=== PATIENT | female | born 1980 | race Caucasian/White ===

== ENCOUNTER 2016-11-01 01:11 | Inpatient (IN) | payer OTHER ==
[~2016-11-01] VITALS: Ht 162.6 cm; Wt 78.4 kg
[2016-11-01] VITALS (26 sets, daily range): BP systolic 95–162; BP diastolic 56–106
[~2016-11-01 01:11] MED LIST: BACTRIM,SEPT1 TABLET PO; CLEOCIN150 MG PO; CLINDAMYCIN HC300 MG PO; INDERAL10 MG PO; MOBIC7.5 MG PO; NORCO 5/3251 TABLET PO; PRENATAL TABLE1 EAC3 PO; ROBAXIN500 MG PO; ULTRAM50 MG PO; XANAX0.25 MG PO; ZOLOFT100 MG PO
[2016-11-01] MEDS ORDERED: METHADONE 22 MG/1 ML PO (01:51)
[2016-11-01] MEDS ORDERED: ZANTAC150 MG PO (01:52)
[2016-11-01] MEDS ORDERED: TYLENOL REGULA325 MG PO (01:53)
[2016-11-01 03:13] LABS: EOSINOPHIL COUNT 0.1 K/uL (0-0.3); HEMATOCRIT 29.8 % (36.0-46.0); IMMATURE GRANULOCYTE (%) 0.5 % (0.0-0.7); IMMATURE GRANULOCYTE COUNT 0.1 K/uL; INSTRUMENT ABS NEUTROPHIL CT 9.3 K/uL; LYMPHOCYTE COUNT 2.3 K/uL (1.0-2.8); MCH 27.2 PG (29.0-34.0); MCHC 32.6 G/DL (30.0-36.0); MCV 83.5 FL (83-99); MEAN PLAT.VOLUME 11.3 uM^3 (9.5-12.4); MONOCYTE (%) 4.1 % (3-12); MONOCYTE COUNT 0.5 K/uL (0-0.8); NEUTROPHIL (%) 75.3 % (45-76); NEUTROPHIL COUNT 9.3 K/uL (1.8-6.4); PLATELET COUNT 236 K/uL (156-360); RBC DIS.WIDTH-CV 13.1 % (11.8-14.6); RBC DIS.WIDTH-SD 39.5 % (39-53); RED BLOOD COUNT 3.57 M/uL (3.80-5.20); WHITE BLOOD COUNT 12.3 K/uL (4.1-10.2)
[2016-11-01] MEDS ORDERED: MOTRIN800 MG PO (13:13)
[2016-11-02 07:52] VITALS: BP 124/68
[2016-11-02] MEDS ORDERED: BREAST PUMP MC (09:51)
[2016-11-02 14:44] VITALS: BP 119/71
[2016-11-02 22:19] VITALS: BP 130/70
[2016-11-03 07:16] VITALS: BP 119/70
[2016-11-03 14:38] VITALS: BP 109/64
== END 2016-11-03 20:35 | disposition home or self-care (01) | DRG 775 ==
LOC: LDRP-OP 01:11 → 2WEST 01:12 → LDRP-OP 11-26 12:57
PROVIDERS: Nurse Practitioner
PROC: 3E0R3CZ (ICD-10-PCS; principal; 2016-11-01)
PROC: 00HU33Z Insertion of Infusion Device into Spinal Canal, Percutaneous Approach (ICD-10-PCS; principal; 2016-11-01)
PROC: 10E0XZZ Delivery of Products of Conception, External Approach (ICD-10-PCS; 2016-11-01)
DX: O48.0 Post-term pregnancy (principal); O99.324 Drug use complicating childbirth; O42.02 Full-term premature rupture of membranes, onset of labor within 24 hours of rupture; O99.334 Smoking (tobacco) complicating childbirth; F11.90 Opioid use, unspecified, uncomplicated; F17.200 Nicotine dependence, unspecified, uncomplicated; Z37.0 Single live birth; Z3A.40 40 weeks gestation of pregnancy; D50.9 Iron deficiency anemia, unspecified; O99.02 Anemia complicating childbirth; Z82.49 Family history of ischemic heart disease and other diseases of the circulatory system; Z83.2 Family history of diseases of the blood and blood-forming organs and certain disorders involving the immune mechanism
CPT/HCPCS: 85025; C1755; J2405; J3010; J7120

== ENCOUNTER 2016-11-05 16:42 | Emergency (ER) | payer OTHER ==
[~2016-11-05] VITALS: Ht 162.6 cm; Wt 72.4 kg
[~2016-11-05 16:42] MED LIST changes: +BREAST PUMP MC; +METHADONE 22 MG/1 ML PO; +MOTRIN800 MG PO; +TYLENOL REGULA325 MG PO; +ZANTAC150 MG PO
[2016-11-05 19:56] LABS: HEMATOCRIT 31.7 % (36.0-46.0); MCH 27.3 PG (29.0-34.0); MCHC 31.9 G/DL (30.0-36.0); MCV 85.7 FL (83-99); PLATELET COUNT 264 K/uL (156-360); RBC DIS.WIDTH-CV 13.3 % (11.8-14.6); RBC DIS.WIDTH-SD 40.9 % (39-53); WHITE BLOOD COUNT 10.2 K/uL (4.1-10.2)
[2016-11-05 19:57] LABS: MEAN PLAT.VOLUME 9.3 uM^3 (9.5-12.4)
[2016-11-05 20:04] LABS: CHLORIDE 104 mEq/L (99-109); POTASSIUM 4.5 mEq/L (3.7-5.4); SODIUM 140 mEq/L (136-147)
[2016-11-05 20:06] LABS: GLUCOSE 78 mg/dL (70-99)
[2016-11-05 20:07] LABS: ANION GAP 12 MEQ/L (2-14)
[2016-11-05 20:10] LABS: GFR ESTIMATE (CALCULATED) > 59 mL/min/
[2016-11-05 20:11] LABS: UREA NITROGEN (BUN) 8 mg/dL (9-23)
[2016-11-05 20:49] VITALS: BP 131/89
== END 2016-11-05 20:50 | disposition home or self-care (01) ==
LOC: EME 16:42 → RME 16:42
PROVIDERS: Nurse Practitioner Family
DX: O99.89 Other specified diseases and conditions complicating pregnancy, childbirth and the puerperium (principal); R60.0 Localized edema; F17.200 Nicotine dependence, unspecified, uncomplicated; Z88.0 Allergy status to penicillin
CPT/HCPCS: 80048; 85027; 93971; 99281; 99284